=== PATIENT | male | born 1990 | race Caucasian/White ===

== ENCOUNTER 2024-11-07 20:01 | Emergency (ER) | payer OTHER ==
[2024-11-07 20:10] VITALS: BP 133/88; PULSE 78; RESP 16; TEMP 98.1; BMI 30.1
[2024-11-07] MEDS ORDERED: ACETAMINOPHEN INJECTION 100 ML ONE (20:38)
[2024-11-07] MEDS: SODIUM CHLORIDE 1,000 ML IV STA (20:47)
[2024-11-07] MEDS: ACETAMINOPHEN 1000 MG/100 ML BAG IVPB ONE (20:48)
[2024-11-07 21:06] LABS: ABSOLUTE IMMATURE GRANULOCYTES 0.01 x10^3/uL (0.0-0.031); BASOPHILS # 0.03 x10^3/uL (0.01-0.08); EOSINOPHIL % 0.6 % (0.8-7.0); EOSINOPHILS # 0.04 x10^3/uL (0.04-0.54); HEMATOCRIT 46.9 % (40.1-51.0); HEMOGLOBIN 16.1 g/dL (13.7-17.5); MCHC 34.3 g/dl (32.3-36.5); MEAN CELL VOLUME 88.3 fl (79.0-92.2); MEAN PLT VOLUME 9.8 fl (9.4-12.4); MONOCYTE # 0.64 x10^3/uL (0.30-0.82); MONOCYTE % 10.4 % (5.3-12.2); PLATELET COUNT 229 x10^3/uL (163-337); RDW 11.8 % (12.0-15.6)
[2024-11-07 21:16] LABS: ALBUMIN 4.9 g/dl (3.4-5.0); CALCIUM 9.9 mg/dl (8.5-10.1); POTASSIUM 4.6 mmol/L (3.5-5.1); TOT PROT 7.9 g/dl (6.4-8.2)
== END 2024-11-07 21:56 | disposition home or self-care (01) ==
LOC: FER 20:01
PROC: 3E033NZ Introduction of Analgesics, Hypnotics, Sedatives into Peripheral Vein, Percutaneous Approach (ICD-10-PCS; principal; 2024-11-07)
PROC: 3E0337Z Introduction of Electrolytic and Water Balance Substance into Peripheral Vein, Percutaneous Approach (ICD-10-PCS; 2024-11-07)
DX: R19.7 Diarrhea, unspecified (principal); R10.84 Generalized abdominal pain; R11.0 Nausea
CPT/HCPCS: 36415; 80053; 85025; 86803; 99284-25; J0131